=== PATIENT | female | born 1945 | race Caucasian/White ===

== ENCOUNTER → 2016-09-26 | Outpatient (CLI) | payer MEDICARE, OTHER | LOC: MAMO 13:40 | DX: Z12.31 Encounter for screening mammogram for malignant neoplasm of breast (principal); Z13.820 Encounter for screening for osteoporosis; M85.862 Other specified disorders of bone density and structure, left lower leg | CPT/HCPCS: 77080; G0202 ==

== ENCOUNTER → 2016-10-06 | Outpatient (CLI) | payer MEDICARE, OTHER | LOC: RAD 16:17 | DX: M25.552 Pain in left hip (principal); M54.5 Low back pain; M85.88 Other specified disorders of bone density and structure, other site | CPT/HCPCS: 72100 ==